=== PATIENT | male | born 1955 | race Hispanic/Latino ===

== ENCOUNTER → 2017-10-09 | Day surgery (SDC) | payer OTHER ==
[~2017-10-09] MED LIST: FENTANYL CITRATE/PF 100MCG/2 ML INJ ONE; HYOSCYAMINE SULFATE 0.5 MG/ML AMP ONE; LIDOCAINE HCL 2% LOCAL INJ 5 ML SDV VIAL INJ ONE; MIDAZOLAM HCL 2 MG/2 ML VIAL ONE; PROPOFOL IV EMULSION 10 MG/ML 50 ML VIAL ONE
--- NOTE | 2017-10-09 16:03 | Operative Report ---
DATE OF PROCEDURE: October 09, 2017 REFERRING PHYSICIAN: Hallie Trotter MD PROCEDURE PERFORMED: Colonoscopy and polypectomy. INDICATIONS FOR COLONOSCOPY: Colorectal cancer screening. MEDICATION: Patient was done under MAC. Please see anesthesiologist's note. PROCEDURE: With the patient in the left lateral decubitus position, the flexible fiberoptic Olympus colonoscope was inserted into the rectum with ease and advanced all way to the cecum. It was then withdrawn slowly. Mucosa overlying the cecum, ascending colon, transverse colon appeared to be within normal limits. One polyp was hot biopsied from the descending colon. Four polyps were hot biopsied from the sigmoid. The rectum grossly appeared to be within normal limits. The scope was then retroflexed into the distal rectum, and small internal hemorrhoids were noted, none of which was actively bleeding. The scope was then straightened out. It was subsequently withdrawn. Patient tolerated the procedure well. IMPRESSION 1. Descending colon polyp, hot biopsied. 2. Sigmoid colon polyps times 4, hot biopsied. 3. Internal hemorrhoids, none actively bleeding. PLAN: Follow up histology. Initiate high-fiber, low-fat diet. Initiate high-fiber supplement. Patient will need a followup colonoscopy in 3 years. Job#: [id number] cc:HALLIE TROTTER MD
== END | disposition home or self-care (01) ==
LOC: OR 11:16
PROVIDERS: ATTEND Internal Medicine Gastroenterology
DX: Z12.11 Encounter for screening for malignant neoplasm of colon (principal); K63.5 Polyp of colon; K64.8 Other hemorrhoids; E66.8 Other obesity; Z01.810 Encounter for preprocedural cardiovascular examination; Z68.35 Body mass index [BMI] 35.0-35.9, adult
CPT/HCPCS: 45384; 93005; J1980; J2001; J2250; 45378